=== PATIENT | male | born 1960 | race African-American/Black ===

== ENCOUNTER 2021-02-25 08:29 | Observation (INO) | payer MEDICAID ==
[~2021-02-25] VITALS: Ht 175.3 cm; Wt 79.6 kg
[2021-02-25] MEDS ORDERED: UNABLE MC (08:36)
--- NOTE | 2021-02-25 08:37 | PHYS DOC ---
Past Medical History Past Medical History: COPD Past Surgical History: No Surgical History Smoking Status: Smoker Current Stat Unkno Alcohol Use: None Drug Use: None General Adult EDM: Chief Complaint: shortness of breath Problems: (1) COPD (chronic obstructive pulmonary disease) HPI: HPI: 61-year-old male with a history of COPD presents to the emergency department complaining of shortness of breath for the past 12 hours. He reports that the shortness of breath started gradually last night after he was walking down some stairs. He states that his symptoms today are very consistent with a typical COPD exacerbation. He has an albuterol Hailer at home, does not take steroids at home, has never been admitted to the hospital for asthma or COPD and has never been intubated. He states that he is only able to speak in short sentences at this time secondary to shortness of breath. The patient admits to cough. The patient denies nausea, vomiting, fever, chills, chest pain, abdominal pain, urinary symptoms, recent trauma, or any other complaints. He is unvaccinated for COVID-19. Review of Systems: Review of Systems: Constitutional: Denies fever or chills. Eyes: Denies change in vision, pain. HENT: Denies congestion or sore throat. Respiratory: Admits to cough and shortness of breath. Cardiovascular: Denies chest pain or edema. GI: Denies abdominal pain, nausea. : Denies change in urination, dysuria. Musculoskeletal: Denies extremity pain, or trauma. Skin: Denies rash, skin change. Neurologic: Denies headache, focal weakness. Psychiatric: Denies depression or anxiety. All other systems reviewed as negative except for what was mentioned in the HPI. Heart Score: C/O Chest Pain: No Family History: Family History: Noncontributory Current Medications: My Orders - MUNIR BURTON DO Procedure Category Date Status Time Vital Signs Monitoring ER 02/25/21 Transmitted 08:31 Blood Pressure ER 02/25/21 Transmitted Monitoring 08:31 Cardiac Monitoring ER 02/25/21 Transmitted 08:31 Saline Lock ER 02/25/21 Transmitted 08:31 Oxygen Delivery ER 02/25/21 Transmitted 08:31 Cbc W [employer] LAB 02/25/21 Logged 08:31 Basic Metabolic Panel LAB 02/25/21 Logged 08:31 Blood Gases With LAB 02/25/21 Logged Cooximetry 08:31 12 Lead Ekg EKG 02/25/21 Logged 08:31 Iv Normal Saline PHA 02/25/21 Logged 1000ml Bag (Iv Sodium 08:45 Albuterol Neb Soln PHA 02/25/21 Logged (Ventolin Neb Soln) 08:45 Ipratrpium/Albuterol PHA 02/25/21 Logged 0.5/2.5mg (Duoneb) 08:45 Prednisone PHA 02/25/21 Logged (Prednisone) 08:45 Nt-Pro Bnp LAB 02/25/21 Logged 08:31 Troponini LAB 02/25/21 Logged 08:31 Pulse Oximetry: JEANNE 02/25/21 In Process Standing Order 08:31 Airway Inhalation RT 02/25/21 Logged Treatment 08:31 Airway Inhalation RT 02/25/21 Logged Treatment 08:31 Sars Cov2 ([place]) LAB 02/25/21 Logged 08:33 Sars Antigen [place] Rapid LAB 02/25/21 Logged 08:33 Allergies: Allergies: Allergies Coded Allergies Type Severity Reaction Last Updated Verified No Known Drug Allergies 02/25/21 No Physical Exam: PE: Constitutional: Moderate distress, nontoxic appearance, sitting upright in the bed for breathing. HENT: Atraumatic, bilateral external ears normal, nose normal. Eyes: PERRLA, EOMI, conjunctiva normal, no discharge. Neck: Normal range of motion, supple, no stridor. Cardiovascular: Heart rate regular rhythm. 2+ radial pulses Lungs & Thorax: Moderate respiratory distress, symmetrical expansion, wheezing with limited air movement appreciated bilaterally, breath sounds are equal. Abdomen: Soft, no tenderness Skin: Warm, dry. Extremities: No tenderness, no cyanosis, ROM intact, no edema. Neurologic: Alert and oriented X 3, normal motor function, normal sensory function, no focal deficits noted. Non ataxic gait. GCS 15. Psychologic: Affect normal, judgment normal, mood normal. Current Patient Data: Labs: Laboratory Tests Test 02/25/21 08:31 02/25/21 09:00 02/25/21 09:10 02/25/21 12:39 O2 Saturation 94 % (92-99) Arterial Blood pH 7.35 (7.35-7.45) Arterial Blood pCO2 at Patient Temp 49 mmHg (35-46) Arterial Blood pO2 at Patient Temp 72 mmHg (65-108) Arterial Blood HCO3 27 mmol/L (21-28) Arterial Blood Base Excess 0 mmol/L (-3-3) Oxyhemoglobin 90.0 % Methemoglobin 0.3 % (0.0-1.9) Carbon Monoxide, Quantitative 3.6 % (0.0-1.9) FiO2 21/ra SARS-CoV-2 Antigen (Rapid) Negative (NEGATIVE) White Blood Count 6.3 x10^3/uL (4.0-11.0) Red Blood Count 4.55 x10^6/uL (4.30-5.70) Hemoglobin 15.3 g/dL (13.0-17.5) Hematocrit 44.4 % (39.0-53.0) Mean Corpuscular Volume 98 fL (79-100) Mean Corpuscular Hemoglobin 34 pg (25-35) Mean Corpuscular Hemoglobin Concent 35 g/dL (31-37) Red Cell Distribution Width 13.2 % (11.5-14.5) Platelet Count 225 x10^3/uL (140-400) Neutrophils (%) (Auto) 44 % (31-73) Lymphocytes (%) (Auto) 47 % (24-48) Monocytes (%) (Auto) 7 % (0-9) Eosinophils (%) (Auto) 2 % (0-3) Basophils (%) (Auto) 0 % (0-3) Neutrophils # (Auto) 2.7 x10^3/uL (1.8-7.7) Lymphocytes # (Auto) 3.0 x10^3/uL (1.0-4.8) Monocytes # (Auto) 0.5 x10^3/uL (0.0-1.1) Eosinophils # (Auto) 0.1 x10^3/uL (0.0-0.7) Basophils # (Auto) 0.0 x10^3/uL (0.0-0.2) Sodium Level 139 mmol/L (136-145) Potassium Level 4.5 mmol/L (3.5-5.1) Chloride Level 105 mmol/L (98-107) Carbon Dioxide Level 33 mmol/L (21-32) Anion Gap 1 (6-14) Blood Urea Nitrogen 13 mg/dL (8-26) Creatinine 1.4 mg/dL (0.7-1.3) Estimated GFR (Cockcroft-Gault) 62.6 Glucose Level 98 mg/dL (70-99) Calcium Level 9.7 mg/dL (8.5-10.1) Troponin I Quantitative 0.050 ng/mL (0.000-0.055) 0.064 ng/mL (0.000-0.055) IS-Wmr-T-Type Natriuretic Peptide 74 pg/mL (0-124) Vital Signs: Vital Signs Date Time Temp Pulse Resp B/P (MAP) Pulse Ox O2 Delivery O2 Flow Rate FiO2 02/25/21 12:01 61 20 167/93 (117) 100 Room Air 02/25/21 11:31 67 20 186/86 (119) 100 Room Air 02/25/21 11:01 62 28 175/85 (115) 100 Room Air 02/25/21 10:31 60 28 172/94 (120) 100 Room Air 02/25/21 10:01 59 28 182/95 (124) 100 Room Air 02/25/21 09:31 61 28 160/86 (110) 100 Room Air 02/25/21 09:02 100 Room Air 02/25/21 09:01 68 28 159/92 (114) 100 Room Air 02/25/21 08:31 70 38 164/93 (116) 98 Room Air 02/25/21 08:30 98.0 73 32 164/96 98 Room Air 98.0 EKG: EKG: Normal sinus rhythm rate of 60, large T wave inversions in V4 through V6, T wave inversion in aVL, no ectopic beats, normal axis, normal MS, QRS, and QTc intervals. Impression: Abnormal EKG; no previous for comparison. interpreted by me, Munir Burton D.O. Course & Med Decision Making: Course & Med Decision Making Patient was treated for COPD exacerbation with DuoNeb, prednisone, fluids. He was found to have improved after 1 round of albuterol. Covid was negative. Objective data shows the patient has an ritesh.with Cr 1.5, initial EKG shows pattern of LVH as above with deep T wave inversions in the lateral leads. I discussed with Dr. Dewitt. A troponin was ordered which was 0.05. A delta troponin later was 0.064. Decision was made to admit the patient for observation. Patient will be admitted to Dr. Omar Mena. The patient remained without chest pain or any further signs or symptoms of ACS and he felt better after interventions Departure Departure Impression: Primary Impression: COPD exacerbation Additional Impressions: Elevated troponin RITESH (acute kidney injury) Disposition: ADMITTED INPATIENT Admitting Physician: Omar Mena Condition: STABLE MUNIR BURTON DO Feb 25, 2021 08:37
[2021-02-25] MEDS ORDERED: IPRATRPIUM/ALBUTEROL 0.5/2.5MG 3 ML NEBU. NEB ONE (08:45)
[2021-02-25] MEDS ORDERED: ALBUTEROL SULFATE 2.5 MG/3 ML NEBU. NEB ONE (08:45)
[2021-02-25] MEDS ORDERED: predniSONE 10 MG TABLET PO ONE (09:00)
[2021-02-25] MEDS ORDERED: IV NORMAL SALINE 1000ML BAG 1,000 ML IV SCH (09:00)
[2021-02-25 09:02] LABS: BASE EXCESS COOX 0 mmol/L (-3-3); HCO3 COOX 27 mmol/L (21-28); METHEMOGLOBIN 0.3 % (0.0-1.9); PCO2 COOX 49 mmHg (35-46); PO2 COOX 72 mmHg (65-108); SAT O2 COOX 94 % (92-99)
[2021-02-25 09:23] LABS: BASO % 0 % (0-3); EOS # 0.1 x10^3/uL (0.0-0.7); EOS % 2 % (0-3); HEMATOCRIT 44.4 % (39.0-53.0); HEMOGLOBIN 15.3 g/dL (13.0-17.5); LYMPH % 47 % (24-48); MEAN CORPUSCULAR HEMOGLOBIN 34 pg (25-35); MEAN CORPUSCULAR HGB CONC 35 g/dL (31-37); MEAN CORPUSCULAR VOLUME 98 fL (79-100); MONO # 0.5 x10^3/uL (0.0-1.1); MONO % 7 % (0-9); NEUT # 2.7 x10^3/uL (1.8-7.7); NEUT % 44 % (31-73); PLATELET COUNT 225 x10^3/uL (140-400); RED BLOOD COUNT 4.55 x10^6/uL (4.30-5.70); RED CELL DISTRIBUTION WIDTH 13.2 % (11.5-14.5); WHITE BLOOD COUNT 6.3 x10^3/uL (4.0-11.0)
[2021-02-25 09:35] LABS: CALCIUM 9.7 mg/dL (8.5-10.1); CREATININE 1.4 mg/dL (0.7-1.3); GFR 62.6; POTASSIUM 4.5 mmol/L (3.5-5.1)
[2021-02-25] MEDS ORDERED: IV RINGERS,LACTATED 500ML 500 ML IV ONE (13:30)
[2021-02-25] MEDS ORDERED: ONDANSETRON PF 4 MG/2 ML VIAL. IVP PRN (13:30)
--- NOTE | 2021-02-25 14:24 | RAD ---
EXAM: Chest, single view. HISTORY: Shortness of air. COMPARISON: None. FINDINGS: A frontal view of the chest is obtained. There is no infiltrate, pleural effusion or pneumo thorax. The heart is normal in size. IMPRESSION: No acute pulmonary finding. Electronically signed by: Nenita Ramirez MD (02/25/2021 2:22 PM) [id number]
[2021-02-25] MEDS ORDERED: ENOXAPARIN 40 MG/0.4 ML SYRINGE. SQ SCH (15:00)
--- NOTE | 2021-02-25 15:07 | EKG ---
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
--- NOTE | 2021-02-25 15:07 | EKG ---
[facility] [address] [place] [address] Test Date: 2021-02-25 Test Time: 10:00:40 Pat Name: BERONICA TRAN Department: Room: Gender: M [employer] Scientist: ;;==;/==p : 1960 Requested By: SHASHA WEISS Order Number: [id number] Reading MD: Measurements Intervals [place] Rate: 57 P: 66 [place]: 192 QRS: 60 QRSD: 72 T: 156 QT: 432 QTc: 424 Interpretive Statements SINUS RHYTHM ST & T ABNORMALITY, CONSIDER ANTEROLATERAL ISCHEMIA OR LEFT VENTRICULAR STRAIN T ABNORMALITY IN ANTERIOR LEADS INFEROLATERAL LEADS NON SPECIFIC ST-T ABNORMALITY (ELEVATION) ABNORMAL ECG RI6.02 Compared to ECG 02/25/2021 08:39:54 Possible ischemia now present Possible ischemia now present T-wave abnormality now present ST (T wave) deviation now present Atrial abnormality no longer present Right-axis deviation no longer present Myocardial infarct finding no longer present
[2021-02-25 18:05] VITALS: BP 176/95
[2021-02-25] MEDS ORDERED: AMLO-187 PO (21:50)
[2021-02-25] MEDS ORDERED: CARV25TA2 PO (21:50)
[2021-02-25] MEDS ORDERED: ALBU2.5V8 IH (21:50)
[2021-02-25] MEDS: IPRATROPIUM/ALBUTEROL 20/100mcg/INH INHALER. INH SCH (22:39)
[2021-02-25 22:50] VITALS: BP 166/93
[2021-02-26 02:41] VITALS: BP 177/83
[2021-02-26 07:30] VITALS: BP 166/101
--- NOTE | 2021-02-26 07:35 | NUR ---
Pt transferred from 6S to room 524 at approx 0730 by wheelchair via floor staff. Pt's tele monitor applied, POC reviewed. Pt denies any pain/SOB at this time. Will assume care.
[2021-02-26] MEDS ORDERED: CARVEDILOL 12.5 MG TABLET. PO SCH (08:00)
[2021-02-26] MEDS ORDERED: IPRATRPIUM/ALBUTEROL 0.5/2.5MG 3 ML NEBU. NEB SCH (08:00)
--- NOTE | 2021-02-26 08:16 | PDOC ---
Provider Note Date of Service: DATE: 02/26/21 TIME: 08:15 Provider Note [id number] Justifications for Admission Other Justification PANTERA COLORADO MD Feb 26, 2021 08:16
[2021-02-26] MEDS: IPRATROPIUM/ALBUTEROL 20/100mcg/INH INHALER. INH SCH (08:44)
[2021-02-26 08:46] VITALS: BP 166/101
--- NOTE | 2021-02-26 08:55 | SSS ---
ADMIT DATE: 02/26/2021 23-HOUR SUMMARY HOSPITAL SUMMARY: A 61-year-old black male with known COPD, hypertension, who came in short of breath because he ran out of his ProAir inhaler. He is not aware of his other meds at home. Laboratory studies were unremarkable except for minimal troponin elevation and EKGs were normal and the chest x-ray was clear. He was given albuterol ____ and Combivent inhaler and is feeling better and comfortable to be discharged and followed at this time. He also received a p.o. dose of prednisone in the emergency room. FINAL DIAGNOSIS: Acute exacerbation of chronic obstructive pulmonary disease. OPERATIONS, PROCEDURES, COMPLICATIONS, CONSULTATIONS: None. DISPOSITION: Continue all home meds the same. He will take his Combivent Medihaler at home to use q.i.d. p.r.n. and follow up with Nenita our PA, as needed. Complete tobacco avoidance encouraged. Low-salt intake because of hypertension. DESIRAE/JANET/SARMAD DR: Perla TID: [id number]
--- NOTE | 2021-02-26 09:41 | PDOC2 ---
CARDIAC CONSULT PAST MEDICAL HISTORY Cardiovascular: HTN, Hyperlipidemia Pulmonary: Asthma, COPD Endocrine: Diabetes CURRENT MEDICATIONS CURRENT MEDICATIONS Current Medications Medications (Trade) Dose Ordered Sig/Francoise Route PRN Reason Start Time Stop Time Status Last Admin Dose Admin Ringer's Solution 500 ml @ 500 mls/hr 1X ONCE IV 02/25/21 13:30 02/25/21 14:29 DC 02/25/21 16:45 Enoxaparin Sodium (Lovenox 40mg Syringe) 40 mg Q24H SQ 02/25/21 15:00 02/25/21 16:39 Albuterol/ Ipratropium (Combivent Respimat 20-100 Mcg) 1 puff RTQID INH 02/25/21 22:00 02/26/21 08:44 Amlodipine Besylate (Norvasc) 10 mg DAILY PO 02/26/21 09:00 02/26/21 08:46 ALLERGIES ALLERGIES: Coded Allergies: No Known Drug Allergies (Unverified , 02/25/21) VITALS/I&O VITALS/I&O: Vital Signs Date Time Temp Pulse Resp B/P (MAP) Pulse Ox O2 Delivery O2 Flow Rate FiO2 02/26/21 08:46 59 166/101 02/26/21 08:34 Room Air 02/26/21 07:30 98.1 18 97 98.1 I & O 02/25/21 02/25/21 02/26/21 15:00 23:00 07:00 Intake Total 300 ml 0 ml Balance 300 ml 0 ml LABS Lab: Laboratory Tests Test 02/25/21 12:39 Troponin I Quantitative 0.064 ng/mL (0.000-0.055) ROBY EASTMAN APRN Feb 26, 2021 09:41
--- NOTE | 2021-02-26 10:12 | NUR ---
Pt left unit at 1010 by ambulation via private vehicle with his home health care case manager. Pt's IV removed without complication, VSS. Discharge paperwork discussed with pt and home health care case manager at bedside.
[2021-02-26 10:32] LABS: CHOLESTEROL/HDL RATIO 3.4
--- NOTE | 2021-03-04 11:23 | NUR ---
Late entry - Ringers solution bolus started on 02/25/21 at 1645 and stopped on 02/25/21 at 1745.
== END 2021-02-26 10:14 | disposition home or self-care (01) ==
LOC: ER 08:29 → INTOOBSV 13:18 → ED HOLD 13:18 → 6 SOUTH 18:09 → 5 NORTH 02-26 07:23
PROVIDERS: ADMIT Internal Medicine; ATTEND Internal Medicine
DX: J44.1 Chronic obstructive pulmonary disease with (acute) exacerbation (principal); N17.9 Acute kidney failure, unspecified; Z20.822 Contact with and (suspected) exposure to COVID-19; E78.5 Hyperlipidemia, unspecified; Z79.899 Other long term (current) drug therapy; Z79.01 Long term (current) use of anticoagulants; Z87.891 Personal history of nicotine dependence
CPT/HCPCS: 36415; 71045; 80048; 80061; 82805; 83880; 84484; 85025; 87426; 93005; 94640; 96360; 96361; 96372; 99285; G0378; J1650; J7030; J7120; J7512; J7613; U0003; U0005; G0379